=== PATIENT | female | born 1955 | race Caucasian/White ===

== ENCOUNTER 2017-04-11 09:56 | Emergency (ER) | payer BC, OTHER ==
[~2017-04-11] VITALS: Ht 152.4 cm; Wt 81.6 kg
[2017-04-11 10:00] VITALS: BP 134/90; PULSE 59; RESP 16; TEMP 96.6; O2SAT 58
[2017-04-11] MEDS ORDERED: METOCLOPRAMIDE HCL 10 MG/2 ML VIAL IM ONE (11:30)
[2017-04-11] MEDS ORDERED: HYDROcodone/ACETAMIN 5-325 MG TAB (NORCO/ VICODIN) PO ONE (11:30)
[2017-04-11 12:15] VITALS: BP 134/90; PULSE 59; RESP 16; TEMP 97.4; O2SAT 98
== END 2017-04-11 12:15 | disposition home or self-care (01) ==
LOC: SED 09:56
DX: G43.909 Migraine, unspecified, not intractable, without status migrainosus (principal); I10 Essential (primary) hypertension; Z88.5 Allergy status to narcotic agent
CPT/HCPCS: 82962; 96372; 99283; J2765